=== PATIENT | female | born 1985 | race Caucasian/White ===

== ENCOUNTER 2017-03-07 09:41 | Emergency (ER) | payer OTHER ==
[2017-03-07] MEDS ORDERED: ONDANSETRON INJ 4 MG/2 ML VIAL IV ONE (09:55)
[2017-03-07] MEDS ORDERED: HYDROcodone 7.5MG/APAP 325MG 1 EA TAB PO ONE (09:55)
--- NOTE | 2017-03-07 09:58 | ED.PDOC ---
History of Present Illness - General Chief Complaint: Headache Stated Complaint: Migraine Time Seen by Provider: 03/07/17 09:45 Source: patient, RN notes reviewed, Vital Signs reviewed Exam Limitations: no limitations - History of Present Illness Initial Comments: Patient comes in via private vehicle with c/o a migraine. She gets migraines regularly and normally uses Maxalt with good relief. She is currently 4-5 weeks and can't take her Maxalt. Her headache is @ her left evangelical, normal spot for her. And feels the same as prior migraines. This MARTIN started @ 1600 yesterday and she has a lot of nausea and vomiting, also typical for her migraines. Timing/Duration: constant - 18 hours Quality: severe, throbbing Head Injury Location: temporal - Left Recent Head Trauma: frequent headaches, chronic headaches - frequent migraines Improving Factors: nothing Worsening Factors: nothing Associated Symptoms: nausea/vomiting Allergies/Adverse Reactions: Allergies NO KNOWN ALLERGY Allergy (Verified 03/07/17 10:01) Home Medications: Ambulatory Orders Acetamin W/Cod #3 Tab [Tylenol w/CODEINE #3] 1 ea PO Q4HR PRN #15 tab 03/07/17 Mv & Min W/ Methylfol [ + Complete Multi 0.267 & 373 mg] 1 maddie PO DAILY 03/07/17 Review of Systems - Review of Systems Constitutional: States: no symptoms reported EENTM: States: no symptoms reported Respiratory: States: no symptoms reported Cardiology: States: no symptoms reported Gastrointestinal/Abdominal: States: nausea, vomiting. Denies: abdominal pain Genitourinary: States: other - Musculoskeletal: States: no symptoms reported Skin: States: no symptoms reported Neurological: States: headache. Denies: numbness, paresthesia, pre-existing deficit, tingling, tremors, weakness All other Systems: No Change from Baseline Family Medical History - Family History Mother Family History: Unknown Physical Exam - Physical Exam General Appearance: Alert, No apparent distress, Well Developed, Well Groomed, Well Hydrated, Well Nourished Eyes, Ears, Nose, Throat Exam: PERRL/EOMI, normal ENT inspection, pharynx normal Neck: non-tender, full range of motion, supple, normal inspection Cardiovascular/Chest: regular rate, rhythm, no gallop, no JVD, no murmur Respiratory: lungs clear, normal breath sounds, no respiratory distress, no accessory muscle use Extremity: normal range of motion, non-tender, normal inspection Mental Status: alert, oriented x 3 poultry processor Exam: normal hearing, normal speech, PERRL, other - CN 2-12 are grossly intact Coordination/Gait: normal gait Motor/Sensory: no motor deficit, no sensory deficit, no pronator drift Skin Exam: warm/dry, normal color Progress - Progress Progress: 03/07/17 11:13 Patient reports her MARTIN and nausea are much improved after Zofran and Crystal. Will d/c home with Rx for Tyl #3 to use if needed for her migraines. Departure - Departure Clinical Impression: Migraine Qualifiers: Migraine type: without aura Status migrainosus presence: without status migrainosus Intractability: not intractable Qualified Code(s): G43.009 - Migraine without aura, not intractable, without status migrainosus Time of Disposition: 11:14 Disposition: Discharge to Home or Self Care Condition: Good Departure Forms: ED Discharge - Pt. Copy, Patient Portal Self Enrollment Instructions: Migraine -- Child Diet: resume usual diet Activity: increase activity as tolerated Referrals: JOSESITO GRUBBS [Primary Care Provider] - 1-2 Weeks Prescriptions: Acetamin W/Cod #3 Tab [Tylenol w/CODEINE #3] 1 ea PO Q4HR PRN #15 tab PRN Reason: Headache/Migraine Pain Home Medications: Ambulatory Orders Acetamin W/Cod #3 Tab [Tylenol w/CODEINE #3] 1 ea PO Q4HR PRN #15 tab 03/07/17 Mv & Min W/ Methylfol [ + Complete Multi 0.267 & 373 mg] 1 maddie PO DAILY 03/07/17
[2017-03-07 10:01] VITALS: O2SAT 98
[2017-03-07 11:24] VITALS: BP 117/62; TEMP 98
== END 2017-03-07 11:24 | disposition home or self-care (01) ==
LOC: ER 09:41
DX: O26.891 Other specified pregnancy related conditions, first trimester (principal); G43.009 Migraine without aura, not intractable, without status migrainosus; Z3A.01 Less than 8 weeks gestation of pregnancy